=== PATIENT | female | born 1970 | race Caucasian/White ===

== ENCOUNTER 2018-08-20 07:46 | Day surgery (SDC) | payer OTHER ==
[~2018-08-20] VITALS: Ht 154.9 cm; Wt 68.0 kg
[2018-08-20 09:42] VITALS: Ht 154.9 cm; Wt 68.0 kg
[2018-08-20] MEDS ORDERED: LEVOTHYROXINE PO (09:49)
[2018-08-20] MEDS ORDERED: SIMVASTATIN PO (09:49)
[2018-08-20] MEDS ORDERED: RENAGEL PO (09:49)
--- NOTE | 2018-08-20 10:10 | PREAC ---
Date/Time of Note Date/Time of Note DATE: 08/20/18 TIME: 10:08 Anesthesia Eval and Record Evaluation Time Pre-Procedure Interview DATE: 08/20/18 TIME: 10:08 Age 48 Sex female NPO: 8 hrs Preoperative diagnosis SCREENING Planned procedure COLON Past Medical History Past Medical History: Includes Cardio: HTN Endo: Hypothyroid Renal: ESRD on dialysis, Other (KIDNEY TRANSPLANT) Surgery & Anesthesia Issues No known issue Meds Anticoagulation: No Beta Ruchi within 24 hr: No Reason Beta Ruchi not given: Pt. not on B-Ruchi Reported Medications [Simvastatin] No Conflict Check, PO 08/20/18 [Levothyroxine] No Conflict Check, PO 08/20/18 [Renagel] No Conflict Check, PO 08/20/18 Meds reviewed: Yes Allergies Coded Allergies: No Known Allergy (Unverified , 08/20/18) Allergies Reviewed: Yes Labs/Studies Labs Reviewed: Reviewed by anesthesiologist test: Negative Pre-procedure Exam Airway: Adequate mouth opening, Adequate thyromental dist Mallampati: Mallampati II Teeth: Normal Lung: Normal Heart: Normal ASA Physical Status ASA physical status: 3 Emergency: None Planned Anesthetic General/MAC: MAC Planned Pain Management Parenteral pain med Pre-operative Attestations Prior to commencing anesthesia and surgery, the patient was re-evaluated, there was verification of: *The patient's identity *The results of appropriate recent lab work and preoperative vital signs *The above evaluation not changing prior to induction *Anesthetic plan, risk benefits, alternative and complications discussed with patient/family; questions answered; patient/family understands, accepts and wishes to proceed. BECKY TOLENTINO Aug 20, 2018 10:10
[2018-08-20] MEDS ORDERED: LIDOCAINE 2% (SDV) 5 ML INJ ONE (10:12)
[2018-08-20] MEDS ORDERED: PROPOFOL 40 ML ONE (10:12)
[2018-08-20] MEDS ORDERED: EPHEDrine SULFATE 50 MG/5 ML SYG IV PRN (10:30)
[2018-08-20] MEDS ORDERED: ONDANSETRON 4 MG INJ IV PRN (10:30)
[2018-08-20] MEDS ORDERED: hydrALAzine 20 MG INJ IV PRN (10:30)
[2018-08-20] MEDS ORDERED: LABETALOL HCL 20MG INJ IV PRN (10:30)
--- NOTE | 2018-08-20 11:19 | PAC ---
Date/Time of Note Date/Time of Note DATE: 08/20/18 TIME: 11:19 Post-Anesthesia Notes Post-Anesthesia Note Last documented vital signs TEMP 97.8 BP 107/78. o2 SAT 98% Activity: WNL Respiratory function: WNL Cardiovascular function: WNL Mental status: Baseline Pain reasonably controlled: Yes Hydration appropriate: Yes Nausea/Vomiting absent: Yes BECKY TOLENTINO Aug 20, 2018 11:19
== END 2018-08-20 12:31 | disposition home or self-care (01) ==
LOC: GIL 07:46
PROVIDERS: ATTEND Internal Medicine Gastroenterology
DX: Z12.11 Encounter for screening for malignant neoplasm of colon (principal); K64.8 Other hemorrhoids
CPT/HCPCS: 45378; Z7610